=== PATIENT | male | born 1995 | race Two or more races ===

== ENCOUNTER 2018-01-26 23:36 | Emergency (ER) | payer OTHER ==
[~2018-01-26] VITALS: Ht 175.3 cm; Wt 68.2 kg
[2018-01-26 23:40] VITALS: BP 145/75
== END 2018-01-27 03:46 | disposition home or self-care (01) ==
LOC: EMS 23:38
DX: S13.4XXA Sprain of ligaments of cervical spine, initial encounter (principal); V43.62XA Car passenger injured in collision with other type car in traffic accident, initial encounter; Y93.89 Activity, other specified; Y92.89 Other specified places as the place of occurrence of the external cause; Y99.8 Other external cause status
CPT/HCPCS: 72040; 99284